=== PATIENT | male | born 1975 | race Caucasian/White ===

== ENCOUNTER 2016-03-24 16:46 | Emergency (ER) | payer OTHER ==
[~2016-03-24] VITALS: Ht 177.8 cm; Wt 75.0 kg
[2016-03-24 16:48] VITALS: Ht 177.8 cm; Wt 75.0 kg
[2016-03-24] MEDS ORDERED: SUCCINYLCHOLINE CHLORIDE 100 MG/5 ML SYG IV STA (16:59)
[2016-03-24] MEDS ORDERED: ETOMIDATE 20 MG INJ IV STA (16:59)
[2016-03-24] MEDS ORDERED: SOD CHLORIDE 0.9% 1,000 ML IV STA (16:59)
[2016-03-24] MEDS ORDERED: PROPOFOL 100 ML IV STA (16:59)
[2016-03-24] MEDS ORDERED: HYDROmorphONE 1 MG/ML SYG IV ONE (17:00)
[2016-03-24] MEDS ORDERED: PROPOFOL 100 ML ONE (17:00)
[2016-03-24 17:21] LABS: BASOPHILS % 0.4 % (0.0-2.0); EOSINOPHILS % 0.4 % (0.0-7.0); HEMATOCRIT 36.2 % (42.0-52.0); LYMPHOCYTES # 2.7 10^3/ul (0.8-2.9); LYMPHOCYTES % 47.3 % (15.0-51.0); MEAN CORPUSCULAR HEMOGLOBIN 31.7 pg (29.0-33.0); MEAN CORPUSCULAR HGB CONC 33.3 g/dl (32.0-37.0); MEAN CORPUSCULAR VOLUME 95.3 fl (82.0-101.0); MEAN PLATELET VOLUME 6.5 fl (7.4-10.4); MONOCYTE # 0.7 10^3/ul (0.3-0.9); MONOCYTES % 12.1 % (0.0-11.0); NEUTROPHIL # 2.3 10^3/ul (1.6-7.5); NEUTROPHILS % 39.8 % (39.0-77.0); PLATELET COUNT 263 10^3/UL (140-440); RED BLOOD COUNT 3.79 10^6/ul (4.70-6.10); RED CELL DISTRIBUTION WIDTH 14.2 % (11.5-14.5); UNCORRECTED WBC 5.7 10^3/ul (4.8-10.8); WHITE BLOOD COUNT 5.7 10^3/ul (4.8-10.8)
[2016-03-24 17:22] LABS: CONDITION 1
[2016-03-24 17:32] LABS: INR 0.97; PARTIAL THROMBOPLASTIN TIME 29.8 Sec (25.0-35.0); PROTIME 12.9 Sec (12.2-14.2)
[2016-03-24 17:33] LABS: ALBUMIN 3.9 g/dl (3.3-4.9); CHLORIDE 99 mmol/L (97-110); SODIUM 139 mmol/L (135-144)
[2016-03-24 17:34] LABS: POTASSIUM 3.3 mmol/L (3.5-5.1)
[2016-03-24 17:35] LABS: CREATININE 1.09 mg/dl (0.61-1.24)
[2016-03-24 17:36] LABS: ALANINE AMINOTRANSFERASE 23 IU/L (13-69); ALBUMIN/GLOBULIN RATIO 1.14; ALKALINE PHOSPHATASE 62 IU/L (42-121); ANION GAP 18 (8-16); ASPARTATE AMINO TRANSFERASE 21 IU/L (15-46); BILIRUBIN,INDIRECT 0.3 mg/dl (0-1.1); BILIRUBIN,TOTAL 0.3 mg/dl (0.2-1.3); BLOOD UREA NITROGEN 10 mg/dl (7-20); CALCIUM 8.7 mg/dl (8.4-10.2); CARBON DIOXIDE 25 mmol/L (21-31); GLUCOSE 163 mg/dl (70-220); TOTAL PROTEIN 7.3 g/dl (6.1-8.1)
[2016-03-24 17:37] LABS: ADD UMIC NO; URINE BILIRUBIN (Dip) NEGATIVE (NEGATIVE); URINE BLOOD (Dip) NEGATIVE (NEGATIVE); URINE COLOR LT. YELLOW (YELLOW); URINE GLUCOSE (Dip) NEGATIVE (NEGATIVE); URINE KETONES (Dip) TRACE (NEGATIVE); URINE LEUKOCYTE ESTERASE (Dip) NEGATIVE (NEGATIVE); URINE NITRITE (Dip) NEGATIVE (NEGATIVE); URINE TOTAL PROTEIN (Dip) NEGATIVE (NEGATIVE); URINE UROBILINOGEN (Dip) 0.2 E.U./dL (0.1-1.0)
[2016-03-24 17:39] LABS: ACETAMINOPHEN < 10.0 ug/ml (10.0-30.0); ETHANOL < 10.0 mg/dl; SALICYLATE < 1.0 mg/dl (5.0-30.0)
--- NOTE | 2016-03-24 17:46 | RADRPT ---
PROCEDURE: XR Chest. CLINICAL INDICATION: Shortness of breath. TECHNIQUE: Single frontal chest x-ray. COMPARISON: None available FINDINGS: The endotracheal tube is in place with the tip 6.5 cm above the logan. Enteric tube is in place an d can be followed to the region of the stomach. The tip is not seen. The side port is in the regio n of the GE junction. The lungs are clear. There is no evidence of focal consolidation, infiltrate , effusion, or pneumothorax. The cardiomediastinal silhouette is unremarkable. Osseous structures are grossly intact. IMPRESSION: 1. Endotracheal tube in place with the tip 6.5 cm above the logan. 2. Enteric tube which can be followed to the stomach with the sideport in the region of the GE junc tion. Recommend advancement by approximately 5 cm. 3. No evidence of acute pulmonary process. RPTAT: TT .Enrrique Webster MD, MD Date Time Electronically viewed and signed by .Enrrique Webster MD, on 03/24/2016 17:46 .A/
[2016-03-24 17:49] LABS: BENZODIAZEPINES Negative (NEGATIVE)
[2016-03-24 17:50] LABS: CANNABINOIDS Positive (NEGATIVE)
[2016-03-24 17:51] LABS: BARBITURATES Negative (NEGATIVE); COCAINE Negative (NEGATIVE); OPIATES Negative (NEGATIVE)
[2016-03-24 18:18] LABS: AADO2 Arterial 195.8 mmHg (7.0-24.0); Allen Test ACCEPTAB; Arterial Base Excess -1.5 mmol/L (-3.0-3); Arterial COHb 0.3 % (0.0-3.0); Arterial Fraction of Oxyhgb 98.9 % (93.0-99.0); Arterial HCO3 22.5 mmol/L (22.0-26.0); Arterial MetHb 0.1 % (0.0-1.5); Arterial Total Hemglobin 13.5 g/dl (12.0-18.0); MODE VENT - AC
--- NOTE | 2016-03-24 18:51 | RADRPT ---
PROCEDURE: CT Head without. CLINICAL INDICATION: Medical clearance. TECHNIQUE: The study was performed utilizing a multi-slice, multidetector CT scanner. Direct spira l 1 mm axial sections were obtained through the head without the use of intravenous contrast materia l. Coronal and sagittal reformations were obtained. The images were reviewed on a PACS workstation. RADIATION DOSE: CTDIvol: 43.2 mGyDLP: 720.2 mGy-cm COMPARISON: No prior studies are available for comparison. FINDINGS: There is no intracranial hemorrhage, extra-axial fluid collection, mass lesion, midline shift or hyd rocephalus. The ventricles, sulci and cisterns are within normal limits. The white matter is unrem arkable. The sahni-white matter differentiation is preserved. The basal cisterns are patent. The m idline structures are intact. The orbits, calvarium and extracranial soft tissues are normal in mary earance. The visualized paranasal sinuses, mastoid air cells and middle ear cavities are normally ae rated. 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 No additional areas of abnormal calcification is seen. IMPRESSION: 1. No acute intracranial abnormality. No intracranial hemorrhage, extra-axial fluid collection, ma ss lesion or hydrocephalous. 2. 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 RPTAT: HGAS .Bear Carvajal MD, Date Time Electronically viewed and signed by .Bear Carvajal MD, MD on 03/24/2016 18:50 .S/
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
[2016-03-24 20:47] VITALS: BP 147/90; PULSE 54; RESP 16; TEMP 93.9
== END 2016-03-24 21:02 | disposition short-term general hospital (02) ==
LOC: E/R 16:46
DX: T68.XXXA Hypothermia, initial encounter (principal); J96.00 Acute respiratory failure, unspecified whether with hypoxia or hypercapnia; D64.9 Anemia, unspecified; E87.6 Hypokalemia; R40.2112 Coma scale, eyes open, never, at arrival to emergency department; R40.2212 Coma scale, best verbal response, none, at arrival to emergency department; R40.2312 Coma scale, best motor response, none, at arrival to emergency department; X31.XXXA Exposure to excessive natural cold, initial encounter; Z87.891 Personal history of nicotine dependence
CPT/HCPCS: 31500; 36415; 36600; 51702; 70450; 71010; 80053; 80306; 80307; 81003; 82803; 82962; 83930; 84484; 85025; 85610; 85730; 93005; 94002; 96374; 99291; J0330; J1170; J7030